=== PATIENT | female | born 1960 | race Caucasian/White ===

== ENCOUNTER 2021-09-02 06:36 | Day surgery (SDC) | payer OTHER ==
[~2021-09-02] VITALS: Ht 160 cm; Wt 56.7 kg
[2021-09-02] MEDS ORDERED: SEVOFLURANE 15 MIN GAS INH ONE (07:45)
[2021-09-02] MEDS ORDERED: fentaNYL CITRATE/PF 100 MCG/2 ML AMP IVP ONE (07:45)
[2021-09-02] MEDS ORDERED: NS IRRIG SOLN 1000 ML IR ONE (07:45)
[2021-09-02] MEDS ORDERED: LR 1,000 ML IV.SOLN IV ONE (07:45)
[2021-09-02] MEDS ORDERED: NS 1000 ML IV.SOLN IV ONE (07:45)
[2021-09-02] MEDS ORDERED: MIDAZOLAM HCL 5 MG/5 ML VIAL IVP ONE (07:45)
[2021-09-02] MEDS ORDERED: KETOROLAC TROMETHAMINE 30 MG VIAL IVP ONE (07:45)
[2021-09-02] MEDS ORDERED: PROPOFOL 200MG/ 20ML VIAL (DIPRIVAN) IV ONE (07:45)
[2021-09-02] MEDS ORDERED: ONDANSETRON HCL 4 MG/2 ML VIAL IVP ONE (07:45)
[2021-09-02] MEDS ORDERED: IBUPROFEN 600 MG TABLET PO ONE (08:45)
[2021-09-02] MEDS ORDERED: MIDAZOLAM HCL 5 MG/5 ML VIAL IVP PRN (08:45)
[2021-09-02] MEDS ORDERED: ONDANSETRON HCL 4 MG/2 ML VIAL IVP PRN ×2 (08:45)
[2021-09-02] MEDS ORDERED: HYDROmorphone 1 MG/ML INJ. CARTRIDGE IVP PRN (08:45)
[2021-09-02] MEDS ORDERED: HYDROcodone/ACETAMIN 5-325 MG TAB (NORCO/ VICODIN) PO PRN (08:45)
[2021-09-02] MEDS ORDERED: OXYCODONE/ACETAMINOPHEN 5-325 TABLET PO PRN ×2 (08:45)
[2021-09-02] MEDS ORDERED: KETOROLAC TROMETHAMINE 30 MG VIAL IVP PRN (08:45)
[2021-09-02] MEDS ORDERED: MORPHINE 2 MG/ML INJ. SYRINGE ONE ×2 (08:49→09:08)
[2021-09-02] MEDS: MORPHINE 4 MG INJ. 4 MG/ML VIAL IVP PRN ×2 (08:50→09:10)
[2021-09-02] MEDS ORDERED: KETOROLAC TROMETHAMINE 30 MG VIAL ONE (08:55)
[2021-09-02] MEDS ORDERED: HYDR-3919 PO (09:15)
[2021-09-02] MEDS ORDERED: DEXAMETHASONE SOD PHOSPHATE 4 MG/ML VIAL IM ONE (09:15)
[2021-09-02] MEDS ORDERED: BUPIVACAINE /PF 0.25% 30 ML VIAL INJ ONE (09:15)
[2021-09-02] MEDS ORDERED: DEXAMETHASONE SOD PHOSPHATE 4 MG/ML VIAL ONE (09:16)
[2021-09-02 10:45] VITALS: BP_SYST 147
== END 2021-09-02 10:00 | disposition home or self-care (01) ==
LOC: SDS 06:36 → SMU 06:37 → SDS 10:00
PROVIDERS: ATTEND Specialist
DX: N95.0 Postmenopausal bleeding (principal); N85.8 Other specified noninflammatory disorders of uterus; Z20.822 Contact with and (suspected) exposure to COVID-19; Z79.899 Other long term (current) drug therapy
CPT/HCPCS: 36415 ×2; 58558; 88305; 87426; U0003; J3490; J1100; J1885; J2250; J2405; J2704; J3010; J2270; J7120; J7030